=== PATIENT | female | born 1990 | race Caucasian/White ===

== ENCOUNTER 2017-05-02 13:18 | Inpatient (IN) | payer MEDICAID ==
[~2017-05-02] VITALS: Ht 172.7 cm; Wt 95.7 kg
[2017-05-02] MEDS ORDERED: PRENATAL COMPLE1 TAB PO (23:12)
[2017-05-02] MEDS ORDERED: TUMS500 MG PO (23:13)
[2017-05-02 23:14] VITALS: BP 102/56; Ht 172.7 cm; Wt 95.7 kg
[2017-05-02 23:55] LABS: HEMATOCRIT 36.6 % (36.0-48.0); HEMOGLOBIN 12.5 g/dL (12-16); MCHC 34.2 g/dL (31.0-37.0); MEAN PLATELET VOLUME 9.4 fL (7.4-10.4); RBC 4.16 10x6/uL (4.00-5.40); RDW 13.1 % (11.5-14.5); WBC 10.8 10x3/uL (4.8-10.8)
[2017-05-03 00:07] LABS: APPEARANCE CLOUDY (CLEAR); BILIRUBIN NEGATIVE (NEGATIVE); COLOR DK YELLOW (YELLOW); GLUCOSE NEGATIVE (NEGATIVE); KETONE LARGE mg/dL (NEGATIVE); NITRITE NEGATIVE (NEGATIVE); PROTEIN TRACE mg/dL (NEGATIVE); UROBILINOGEN NORMAL (NORMAL)
[2017-05-03 00:08] LABS: BACTERIA MODERATE /hpf (NONE SEEN); EPITHELIAL CELLS 0-5 /hpf (0-5); RED CELLS - URINE 0-5 /hpf (0-5); WHITE CELLS - URINE 0-5 /hpf (0-5)
--- NOTE | 2017-05-03 03:56 | NUR ---
RN TO PT BS TO PERFORM VS, WNL. PT C/O PAIN, RATES 4/10, REQUESTS MEDICATION. DEMEROL 50MG PROVIDED PO AT THIS TIME. WATER MUG REFRESHED. PT DENIES ANY FURTHER NEEDS. BED IN LOW POSITION, SIDE RAILS UP TIMES 2, CALL LIGHT AND PHONE IN REACH. SO REMAINS AT PT BS FOR SUPPORT AND ASSISTANCE. INFANT REMAINS AT PT BS FOR COUPLET CARE. WILL CONT TO MONITOR PT STATUS.
[2017-05-03 15:08] LABS: HIV 1 & 2- RAPID SCREEN NEGATIVE (NEGATIVE)
--- NOTE | 2017-05-03 19:08 | NUR ---
BEDSIDE REPORT REC'D FROM Leda CROWDER RN. PT REC'D SITTING IN HIGH FOWLERS POSITION BONDING WITH INFANT. DENIES NEEDS AT THIS TIME. BED IN LOW POSITION WITH UPPER SIDE RAILS RAISED X2. CL AND PHONE WITHIN REACH. WILL CONT TO MONITOR AND ASSIST PRN.
--- NOTE | 2017-05-03 19:49 | NUR ---
RN TO BEDSIDE FOR ROUNDS. PT CONTINUES TO MEREDITH WITH . DENIES NEEDS AT THIS TIME. REPORTS THAT PAIN IS 6-7/10, STATES THAT MOTRIN HASN'T HELPED PAIN MUCH. NEW ICE PACK PROVIDE TO PERINUM FOR COMFORT. WILL NOTIFY DR. WATTERS OF C/O PAIN THAT IS UNRELIEVED. PT REPORTS THAT SHE IS USING PERIBOTTLE AND DERMAPLAST ALSO WITH MINIMAL RELIEF. DENIES ADDITIONAL NEEDS AT THIS TIME. WILL CONT TO MONITOR AND ASSIST PRN. BED IN LOW POSITION WITH UPPER SIDE RAILS RAISED X2. CL AND PHONE WITHIN REACH. WILL CONT TO MONITOR AND ASSIST PRN.
--- NOTE | 2017-05-03 20:15 | NUR ---
DR. WATTERS NOTIFIED OF PT REPORTS OF UNCONTROLLED PAIN AND INTERVENTIONS DONE. ORDERS REC'D FOR TYLENOL #3 PRN Q4HP PAIN.
[2017-05-03 20:41] VITALS: BP 112/57
--- NOTE | 2017-05-03 20:41 | NUR ---
PAIN 8/10. TYLENOL #3 GIVEN. PT EDUCATED ON MEDICATION USE AND SIDE EFFECTS. VSS. FUNDUS FIRM, U2 MIDLINE, SMALL AMT RUBRA LOCHIA, NO CLOTS. BOWEL SOUNDS PRESENT AND ACTIVE X4. PT STATES THAT SHE IS VOIDING WITHOUT DIFFICULTY AND PASSING FLATUS. BREATH SOUNDS CLEAR AND EQUAL BILATERALLY. BED IN LOW POSITION WITH UPPER SIDE RAILS RAISED X2. CL AND PHONE WITHIN REACH. PLAN OF CARE DISCUSSED WITH PT, DENIES QUESTIONS, VERBALIZES AGREEMENT. WILL CONT TO MONITOR AND ASSIST PRN.
--- NOTE | 2017-05-03 21:27 | NUR ---
PAIN REASSESSMENT COMPLETED. PAIN 10/25, STATES THAT SHE IS FEELING MUCH BETTER NOW. INFANT TAKEN TO NBN PER PT REQUEST. PT REQUEST TO SHOWER AT THIS TIME. INSTRUCTED ON CL USE IN SHOWER, VERBALIZES UNDERSTANDING. WILL CONT TO MONITOR AND ASSIST PRN.
--- NOTE | 2017-05-03 21:57 | NUR ---
SHOWER COMPLETED. PT AMBULATORY TO ROOM 1257 FOR CONTINUES PP CARE. ORIENTED TO ROOM, CL USE, BATHROOM, BEDRAILS, AND ROOM TELEPHONE. PT INSTRUCTED ON USE OF ROOM PHONE TO CONTACT NBN, VERBALIZES UNDERSTANDING. REPORTS THAT PAIN IS 6/10, ABD CRAMPING AND PERINEAL BURNING/STINGING. PT ALSO SHOWN TO NBN FROM NEW ROOM. BED IN LOW POSITION WITH UPPER SIDE RAILS RAISED X2. CL AND PHONE WITHIN REACH. WILL CONT TO MONITOR.
--- NOTE | 2017-05-03 22:05 | NUR ---
MOTRIN GIVEN FOR PAIN. EPIFOAM AND TUX ALSO PROVIDE. PT INSTRUCTED ON USE OF EPIFOAM AND TUX PADS. VERBALIZES UNDERSTANDING, STATES THAT SHE HAS USED ALL PRODUCTS WITH HER PREVIOUS BIRTHS. MILD 2+ BILATERAL LABIAL SWELLING. NEW ICE PACK PLACED TO PERINUM. SANDWICH TRAY PROVIDED PER PT REQUEST. ICE WATER AND SODA GIVEN. DENIES ADDITIONAL NEEDS AT THIS TIME. BED IN LOW POSITION WITH UPPER SIDE RAILS RAISED X2. CL AND PHONE WITHIN REACH. WILL CONT TO MONITOR AND ASSIST PRN.
--- NOTE | 2017-05-03 22:50 | NUR ---
RN TO BEDSIDE. PAIN REASSESSMENT COMPLETED. WITH IN ARMS RESTING WITH EYES CLOSED. PT EDUCATED ON BEING SURE IS IN OPEN CRIB OR NBN WHEN RESTING, VERBALIZES UNDERSTANDING. PAIN 4/10. DENIES NEEDS AT THIS TIME. ICE REMOVED FROM PERINUM PER PT REQUEST. BED IN LOW POSITION WITH UPPER SIDE RAILS RAISED X2. CL AND PHONE WITHIN REACH. WILL CONT TO MONITOR AND ASSIST PRN.
--- NOTE | 2017-05-04 00:44 | NUR ---
RN TO BEDSIDE FOR ROUNDS. PAIN 8/10, ABD CRAMPING AND PERINEAL BURNING/STINGING. TYLENOL #3 GIVEN PER ORDER AND PT REQUEST. ICE WATER GIVEN. DENIES ADDITIONAL NEEDS AT THIS TIME. BED IN LOW POSITION WITH UPPER SIDE RAILS RAISED X2. CL AND PHONE WITHIN REACH. WILL CONT TO MONITOR AND ASSIST PRN.
--- NOTE | 2017-05-04 01:30 | NUR ---
PAIN REASSESSMENT COMPLETED. PT RESTING WITH EYES CLOSED LAYING ON RIGHT SIDE. RESPIRATIONS REGULAR AND UNLABORED. NO S/S OF DISTRESS NOTED. INFANT IN NBN. BED IN LOW POSITION WITH UPPER SIDE RAILS RAISED X2. CL AND PHONE WITHIN REACH. WILL CONT TO MONITOR AND ASSIST PRN.
--- NOTE | 2017-05-04 03:16 | NUR ---
RN TO BEDSIDE FOR ROUNDS. PT SITTING IN HIGH FOWLERS POSITION BREAST FEEDING . ICE WATER GIVEN. DENIES ADDITIONAL NEEDS AT THIS TIME. PAIN 4-5/10, REQUEST NEW ICE PACK, DENIES NEED FOR MEDICATIONS AT THIS TIME. ICE PACK GIVEN. BED IN LOW POSITION WITH UPPER SIDE RAILS RAISED X2. CL AND PHONE WITHIN REACH. WILL CONT TO MONITOR AND ASSIST PRN.
--- NOTE | 2017-05-04 04:24 | NUR ---
PT CALLS VIA CL. REQUEST PAIN MEDICATION. PAIN NOW 8/10 ABD CRAMPING AND PERINEAL "SORENESS, BURNING, AND STINGING." PT REPORTS THAT SHE JUST VOIDED AND USED ALL PERICARE PRODUCTS. ICE LAYING ON BEDSIDE TABLE, PT REPORTS THAT SHE REMOVED ICE PACK TO GO TO THE BATHROOM. MOTRIN AND TYLENOL #3 GIVEN PER ORDERS AND PT REQUEST. COFFEE PROVIDED. SMALL AMT RUBRA LOCHIA NOTED TO PERIPAD, NO CLOTS. BED IN LOW POSITION WITH UPPER SIDE RAILS RAISED X2. CL AND PHONE WITHIN REACH. WILL CONT TO MONITOR AND ASSIST PRN. REMAINS IN ROOM IN OPEN CRIB AT THIS TIME.
--- NOTE | 2017-05-04 05:15 | NUR ---
PAIN REASSESSMENT COMPLETED. PAIN 10/25. CHUX CHANGED. IN OPEN CRIB AT BEDSIDE. PT AMBULATING IN ROOM. STATES THAT SHE IS "SORE" FROM GIVING . DENIES NEEDS. BED IN LOW POSITION WITH UPPER SIDE RAILS RAISED X2. CL AND PHONE WITHIN REACH. WILL CONT TO MONITOR AND ASSIST PRN.
[2017-05-04 07:20] VITALS: BP 102/47
--- NOTE | 2017-05-04 07:31 | NUR ---
PT WAS RECEIVED THIS AM LYING IN BED, HOLDING BABY. SHE STATES THAT HER PAIN IS AN 8. SHE STATES THAT HER BOTTOM HURTS. VSS. GEN- AWAKE AND ALERT. LUNGS- CLEAR. HEART- RRR. ABD- SOFT WITH TENDERNESS. EXT- NO EDEMA NOTED. BED IS LOW, SIDE RAILS UP X 2 AND CALL LIGHT IN REACH. PT HAS BEEN DOING HER SANTO CARE.
--- NOTE | 2017-05-04 07:43 | OP ---
PATIENT NAME: KATHY BROWN MEDICAL RECORD: [id number] :89 LOCATION:[id number] ADMISSION DATE:05/02/17 SURGEON: KANE WATTERS MD DATE OF OPERATION: 05/03/2017 PREDELIVERY DIAGNOSIS: at term. POSTDELIVERY DIAGNOSIS: Mother delivered at term. PROCEDURE: Vaginal delivery. ATTENDING SURGEON: Kane Watters MD ANESTHETIC: Continuous lumbar epidural. FINDINGS: Viable female , MICHAEL presentation, Apgars were 9 and 9, weight 3390 grams. First-degree perineal laceration with 4-0 chromic repair and local anesthetic applied. Placenta is delivered spontaneous and intact. ESTIMATED BLOOD LOSS: 300 cc. DISPOSITION: Mother and recovered in the room. TRANSINT:[id number] Voice Confirmation ID: [id number] DOCUMENT ID: [id number] KANE WATTERS MD at 0743 CC: [id number] DICTATION DATE: 05/03/17 1249 DIE CASTING MACHINE OPERATOR: 05/03/17 1315 ADM IN [facility] [address] [place] [address]
--- NOTE | 2017-05-04 07:46 | NUR ---
DR WATTERS IS HERE TO SEE PT. NEW ORDERS NOTED.
[2017-05-04 08:21] LABS: RAPID PLASMA REAGIN Non Reactive (Non Reactive)
--- NOTE | 2017-05-04 09:22 | NUR ---
SALINE LOCK REMOVED, TIP INTACT.
--- NOTE | 2017-05-04 10:49 | NUR ---
PT REQUESTED PAIN MED. TORADOL GIVEN PO. SHE STATES THAT HER PAIN IS AN 8.
--- NOTE | 2017-05-04 13:00 | NUR ---
PT LYING IN BED HOLDING BABY. SHE OFFERS NO COMPLAINTS AT THIS TIME. LOCIA RUBRA SLOWING DOWN. PT VOIDING WITHOUT DIFFICULTY.
--- NOTE | 2017-05-04 14:52 | NUR ---
PT REQUESTED PAIN MED. GIVEN.
--- NOTE | 2017-05-04 15:00 | NUR ---
RECEIVED PT SITTING UP IN BED. ON TABLET. DENIES NEEDS. STATES RECEIVED PAIN MEDICATION EARLIER.
[2017-05-04 16:20] VITALS: BP 101/55
--- NOTE | 2017-05-04 16:25 | NUR ---
PT C/O PAIN TO PERINEUM OF "7" ON 0-10 PAIN SCALE. TORADOL 10 MG GIVEN PO ORDERED. PT INSTRUCTED ON MED. VERBALIZES UNDERSTANDING. VSS. PT STATES VOIDING WITHOUT DIFFICULTY. DENIES HEAVY BLEEDING OR PASSING CLOTS. STATES SHOWERED.
--- NOTE | 2017-05-04 17:10 | NUR ---
PT SITTING UP IN BED. HOLDS WITH MUCH WARMTH SHOWN. STATES PAIN NOW "5" ON 0-10 PAIN SCALE. PERINEUM EXAMINED WITH SKIN COLOR PINK. PERINEUM WITH STITCHES WELL APPROXIMATED. FUNDUS FIRM AT U/2. RUBRA LOCHIA SMALL AMT. PT DENIES HEAVY BLEEDING OR PASSING CLOTS. PT STATES "I KNOW THIS IS NORMAL AND I WILL BE BETTER TOMORROW".
--- NOTE | 2017-05-04 19:00 | NUR ---
REPORT GIVEN TO ON-COMING SHIFT.
--- NOTE | 2017-05-04 19:23 | NUR ---
RN TO BEDSIDE. OSMAN FLOYD RN IN ROOM ASSESSING . PT NOTED TO HAVE GRIMACE WHEN SHIFTING IN BED. RATES PAIN 02/24, "I'M JUST SORE, I ALWAYS AM THE DAY AFTER DELIVERY" REPORT ABD CRAMPING, GENERALIZED SORENESS, AND PERINEAL BURNING AND STINGING. PT REQUEST NORCO, GIVEN PER ORDER. PT WITH IN ARMS FOLLOWING NB ASSESSMENT BY Angelito MISTRY RN. PT REQUEST THAT HER V/S AND ASSESSMENT BE COMPLETED WHEN SHE FINISHES WITH CARE. INSTRUCTED TO USE CL TO NOTIFY RN WHEN SHE IS READY FOR ASSESSMENT TO BE COMPLETED, VERBALIZES UNDERSTANDING. BED IN LOW POSITION WITH UPPER SIDE RAILS RAISED X2. CL AND PHONE WITHIN REACH. WILL CONT TO MONITOR AND ASSIST PRN.
[2017-05-04 20:15] VITALS: BP 121/73
--- NOTE | 2017-05-04 20:15 | NUR ---
RN BACK TO BEDSIDE FOR PAIN REASSESSMENT AND ROUNDS. PT JUST GETTING BACK TO BED FOLLOWING VOIDING. STATES THAT SHE IS VOIDING WITHOUT DIFFICULTY AND PASSING FLATUS BUT HAS NOT HAD A BM. PAIN 6/10, REPORTS THAT PAIN IS IMPROVING AND SHE IS MORE COMFORTABLE THAN PRIOR TO RECEIVING PAIN MEDICATIONS. VSS. FUNDUS FIRM U3 AND MIDLINE, SMALL AMT RUBRA LOCHIA NOTED, NO CLOTS. BOWEL SOUNDS PRESENT AND ACTIVE X4. NO LABIAL SWELLING NOTED. BREATH SOUNDS CLEAR AND EQUAL BILATERALLY, RESPIRATIONS REGULAR AND UNLABORED. SITZ BATH OFFERED, PT DECLINES STATES THAT SHE USED THE SHOWER HEAD AND DOESN'T LIKE THE BASINS BECAUSE SHE FEELS DIRTY FOLLOWING USE. EDUCATED ON S/S OF INFECTION AND POSSIBLE PP COMPLICATIONS TO REPORT FOLLOWING D/C, VERBALIZED UNDERSTANDING. PT STATEST THAT SHE IS HUNGRY, SANDWICH TRAY, APPLE SAUCE, AND CRANBERRY JUICE PROVIDED. DENIES ADDITIONAL NEEDS AT THIS TIME. FALL PRECAUTIONS REINFORCED WITH PT D/T PAIN MEDICATIONS, VERBALIZES UNDERSTANDING STATING SHE WILL USE THE CL FOR ASSISTANCE PRN. BED IN LOW POSITION WITH UPPER SIDE RAILS RAISED X2. CL AND PHONE WITHIN REACH. WILL CONT TO MONITOR AND ASSIST PRN.
--- NOTE | 2017-05-04 21:11 | NUR ---
RN TO BEDSIDE FOR ROUNDS. PT BREAST FEEDING INFANT AT THIS TIME. PAIN 01/24, ABD CRAMPING, REQUESTS TORADOL, EXPLAINED THAT TORADOL CAN'T BE GIVEN UNTIL 2200, VERBALIZES UNDERSTANDING. EXPLAINED MEDICATION FREQUENCY TO PT, VERABLIZES UNDERSTANDING AND REQUESTS THAT RN BRING MED WHEN SHE CAN HAVE IT. DENIES ADDITIONAL NEEDS AT THIS TIME. BED IN LOW POSITION WITH UPPER SIDE RAILS RAISED X2. CL AND PHONE WITHIN REACH. WILL CONT TO MONITOR AND ASSIST PRN.
--- NOTE | 2017-05-04 22:31 | NUR ---
RN TO BEDSIDE. PT BONDING WITH . PAIN 02/24, ABD CRAMPING AND PERINEAL BURNING/STINGING AND "IT'S JUST SORE." TORADOL GIVEN PER PREVIOUS REQUEST. ICE WATER GIVEN. DENIES ADDITIONAL NEEDS. PT REPORTS THAT SHE IS CONCERNED THAT ISN'T GETTING ENOUGH COLOSTRUM DURING NURSING SESSIONS, REQUESTS TO KNOW NEXT WEIGHT, OSMAN DOWNING RN NOTIFIED AND WILL REPORT TO PT. PT REPORTS THAT INFANT IS HAVING WET AND DIRTY DIAPERS, ENCOURAGEMENT OFFERED, PT VERBALIZES APPRECIATION. BED IN LOW POSITIION WITH UPPER SIDE RAILS RAISED X2. CL AND PHONE WITHIN REACH. WILL CONT TO MONITOR AND ASSIST PRN.
--- NOTE | 2017-05-04 23:22 | NUR ---
RN TO BEDSIDE FOR PAIN REASSESSMENT. PT RESTING WITH EYES CLOSED IN SEMI FOWLERS POSITION ON LEFT SIDE. RESPIRATIONS REGULAR AND UNLABORED, NO S/S OF DISTRESS NOTED. INFANT IN NBN. BED IN LOW POSITION WITH UPPER SIDE RAILS RAISED X2. CL AND PHONE WITHIN REACH. WILL CONT TO MONITOR AND ASSIST PRN.
--- NOTE | 2017-05-05 01:07 | NUR ---
RN TO BEDSIDE FOR ROUNDS. BROUGHT TO PT FOR BREAST FEEDING PER NBN REQUEST. ID BANDS MATCHED. PT REQUESTS PAIN MEDICATION AT NEXT AVAILABLE TIME, REPORTS THAT PAIN IS 8/10, ABD CRAMPING AND GENERALIZED SORENESS. DENIES ADDITIONAL NEEDS AT THIS TIME. BED IN LOW POSITION WITH UPPER SIDE RAILS RAISED X2. CL AND PHONE WITHIN REACH. NOTED TO HAVE GOOD LATCH, SUCK AND SWALLOW. WILL MEDICATE AT 0120 PER PT'S REQUEST AND CONT TO MONITOR AND ASSIST PRN.
--- NOTE | 2017-05-05 01:24 | NUR ---
PAIN 8/10, ABD CRAMPING, PERINEAL BURNING AND STINGING, AND "JUST SORE ALL OVER." NORCO TAB X2 GIVEN PER ORDER AND PT REQUEST. PT BONDING WITH INFANT AT THIS TIME. ICE WATER GIVEN, DENIES ADDITIONAL NEEDS, STATES THAT NURSED WELL. BED IN LOW POSITION WITH UPPER SIDE RAILS RAISED X2. CL AND PHONE WITHIN REACH. WILL CONT TO MONITOR AND ASSIST PRN.
--- NOTE | 2017-05-05 02:03 | NUR ---
RN TO BEDSIDE FOR PAIN REASSESSMENT. PT WITH IN ARMS, STATES THAT SHE IS NODDING OFF AT TIMES. INFANT PLACED IN OPEN CRIB PER PT REQUEST. PAIN 5/10, DENIES NEED FOR ADDITIONAL INTERVENTION. DENIES NEEDS. BED IN LOW POSITION WITH UPPER SIDE RAILS RAISED X2. CL AND PHONE WITHIN REACH. WILL CONTINUE TO MONITOR AND ASSIST.
--- NOTE | 2017-05-05 04:21 | NUR ---
RN TO BEDSIDE FOR ROUNDS. PT RESTING WITH EYES CLOSED ON RIGHT SIDE IN SEMI FOWLERS POSITION. RESPIRATIONS REGULAR AND UNLABORED, NO S/S OF DISTRESS NOTED. INFANT IN OPEN CRIB AT BEDSIDE, RESPIRATIONS REGULAR AND UNLABORED, NO S/S OF DISTRESS NOTED. BED IN LOW POSITION WITH UPPER SIDE RAILS RAISED X2. CL AND PHONE WITHIN REACH. WILL CONT TO MONITOR AND ASSIST PRN.
--- NOTE | 2017-05-05 05:10 | NUR ---
PT CALLS VIA CL. REQUESTS TORADOL FOR ABD CRAMPING. RN TO BEDSIDE. PAIN 01/24. PT BREAST FEEDING AT THIS TIME. COFFEE ALSO PROVIDED PER REQUEST. DENIES ADDITIONAL NEEDS THIS TIME. TORADOL GIVEN PER REQUEST. BED IN LOW POSITION WITH UPPER SIDE RAILS RAISED X2. CL AND PHONE WITHIN REACH. WILL CONT TO MONITOR AND ASSIST PRN.
--- NOTE | 2017-05-05 08:00 | NUR ---
PT IS LYING IN BED, WATCHING TV. BREAKFAST TRAY IS ON BEDSIDE TABLE. PT DENIES NEEDS AT THIS TIME. FAMILY AT BEDSIDE VISITING. WILL RETURN FOR AM ASSESSMENT. SRUP X2, CALL LIGHT AND PHONE WITHIN REACH.
[2017-05-05 10:00] VITALS: BP 110/62
--- NOTE | 2017-05-05 10:00 | NUR ---
TO PT'S ROOM, PT IS SITTING UP IN THE BED, NURSING . PT REQUESTS PAIN MEDICATIONS, SEE EMAR FOR ALL MEDS ADM BY THIS RN. FRESH ICE WATER SERVED. PT DENIES HEAVY BLEEDING OR PASSING CLOTS. PT DENIES OTHER NEEDS AT THIS TIME. SR UP X2, CALL LIGHT AND PHONE WITHIN REACH.
--- NOTE | 2017-05-05 11:00 | NUR ---
PT IS SITTING IN THE BED, STATES SHE IS FEELING MUCH BETTER. DISCHARGE PLANNING DISCUSSED WITH PT. PT DENIES NEEDS AT THIS TIME. SR UP X 2, CALL LIGHT AND PHONE WITHIN REACH.
--- NOTE | 2017-05-05 12:00 | NUR ---
DIETARY SERVES LUNCH TRAY, PT DENIES ALL NEEDS AT THIS TIME. SRUP X 2, CALL LIGHT AND PHONE WITHIN REACH.
[2017-05-05] MEDS ORDERED: IBUPROFEN800 MG PO (13:51)
[2017-05-05] MEDS ORDERED: TYLENOL #4 W/CO1 TAB PO (13:52)
--- NOTE | 2017-05-05 14:00 | NUR ---
DISCHARGE INSTRUCTIONS EXPLAINED TO PT, PRESCRIPTIONS GIVEN TO PT, ALONG WITH INSTRUCTION SHEET AND HOME MED LIST. PT DENIES ANY FURTHER NEEDS. PREPARING SELF AND FOR DISCHARGE HOME. SIG OTHER AND YOUNG SON IN THE ROOM AT THIS TIME.
--- NOTE | 2017-05-05 14:20 | NUR ---
PT TAKEN OUT, AMBULATORY WITH INFANT IN CARSEAT, TO PRIVATE VEHICLE, WITH SIG OTHER DRIVING.
--- NOTE | 2017-07-28 08:09 | DS ---
PATIENT:KATHY BROWN :88 MEDICAL RECORD: [id number] DISCHARGE SUMMARY ADMISSION DATE: 05/02/17 DISCHARGE DATE: 05/05/17 DATE OF ADMISSION: 05/02/2017. DATE OF DISCHARGE: 05/05/2017. ADMISSION DIAGNOSIS: at term. DISCHARGE DIAGNOSES: Mother delivered at term. PROCEDURE: Vaginal delivery. SUMMARY OF HOSPITALIZATION: The patient was admitted to the hospital and delivered without incident. The patient had an unremarkable hospital stay and at the time of discharge, has adequate pain control, tolerating a regular diet, and voiding without difficulty. DISCHARGE MEDICATIONS: Include ibuprofen. She has been instructed to follow up in 4 weeks at the [facility]. TRANSINT:[id number] Voice Confirmation ID: [id number] DOCUMENT ID: [id number] HALIE WATTERS MD at 0809 CC: [id number] DICTATION DATE: 07/26/17 1630 MERCHANDISING LEAD: 07/27/17 0813 DIS IN 05/05/17 [id number] [place] [address]
== END 2017-05-05 14:20 | disposition home or self-care (01) | DRG 775 ==
LOC: D.LD 13:18
PROVIDERS: ADMIT Obstetrics & Gynecology
PROC: 10E0XZZ Delivery of Products of Conception, External Approach (ICD-10-PCS; principal; 2017-05-03)
PROC: 0HQ9XZZ Repair Perineum Skin, External Approach (ICD-10-PCS; 2017-05-03)
DX: O99.824 Streptococcus B carrier state complicating childbirth (principal); Z3A.39 39 weeks gestation of pregnancy; Z37.0 Single live birth

== ENCOUNTER 2018-10-30 05:20 | Day surgery (SDC) | payer MEDICAID ==
[2018-10-27 10:34] LABS: CALC OSMOLALITY 279 mosm/kg (275-300); CALCIUM 8.5 mg/dL (8.5-10.1); CARBON DIOXIDE 26.1 mmol/L (21.0-32.0); CHLORIDE - SERUM 105 mmol/L (98-107); CREATININE - SERUM 0.7 mg/dL (0.6-1.3); GLUCOSE 89 mg/dL (74-106); POTASSIUM - SERUM 3.9 mmol/L (3.5-5.1); SODIUM 141 mmol/L (136-145); UREA NITROGEN 12 mg/dL (7-18); eGFR NON AFRICAN AMERICAN > 90 mL/min (90-120)
[2018-10-27 10:47] LABS: HEMATOCRIT 40.2 % (36.0-48.0); LYMPHOCYTES 26.7 % (15-50); MCH 31.1 pg (26.0-34.0); MCHC 34.8 g/dL (31.0-37.0); MCV 89.3 fL (80.0-100.0); MEAN PLATELET VOLUME 8.3 fL (7.4-10.4); NEUTROPHILS 66.7 % (40-80); PLATELET COUNT 371 10x3/uL (130-400); WBC 9.5 10x3/uL (4.8-10.8)
[~2018-10-30] VITALS: Ht 172.7 cm; Wt 105.9 kg
[2018-10-30] VITALS (11 sets, daily range): BP systolic 108–137; BP diastolic 55–76; Ht 172.7 cm; Wt 105.9 kg
[~2018-10-30 05:20] MED LIST: IBUPROFEN800 MG PO; PRENATAL COMPLE1 TAB PO; TUMS500 MG PO; TYLENOL #4 W/CO1 TAB PO
[2018-10-30] MEDS ORDERED: NEURONTIN 300300 MG PO (06:20)
[2018-10-30 06:25] LABS: HCG URINE NEGATIVE (NEGATIVE)
--- NOTE | 2018-10-30 10:38 | NUR ---
RECEIVED 28 Y/O WF WELL NOURISHED AND IN NO DISTRESS. O2 HAS BEEN WEANED OFF. O2 SAT ON ROOM AIR IS 98%. ALERT/AWAKE. ORIENTED X 4. SKIN WARM DRY AND PINK. BBS= AND CTA. BOWEL SOUNDS PRESENT ONLY IN LEFT LOWER QUADRANT. 3 STAB WOUNDS NOTED WITH MARGINS WELL APPROXIMATED AT UMBILICUS AND AT FAR RIGHT AND LEFT MARGINS LOWER ABD PROXIMAL TO VULVA. GRANT. SCD SLEEVES INTACT; CONNECTED TO SCD PUMP NOW WITH PUMP ON. IV LEFT FOREARM PATENT WITH LR AT KVO AND NO SIGNS OF REDNESS, SWELLING,DRAINAGE OR FEVER AT OR NEAR INSERTION SITE; CONNECTED TO IV PUMP FOR RATE OF 125ML/HR. INSTRUCTED TO TURN, COUGH AND DEEP BREATH EVERY 2 HR. PATIENT COMPLIANT AND DEEP BREATHES/COUGHS NOW WITH PILLOW TO ABD FOR SPLINTING. REPORTS PAIN AT LEVEL 7 ON SCALE OF 0-10. DENIES NAUSEA. 2 ICE CHIPS GIVEN. HAYNES PATENT WITH CLEAR PALE YELLOW URINE, APPROX 200ML IN BAG. NO VAGINAL DISCHARGE. HOB ELEVATED TO 45 DEGREES. ATTENTIVE AT BEDSIDE; BOTH HE AND PATIENT ORIENTED TO ROOM AND POC.
--- NOTE | 2018-10-30 11:35 | NUR ---
REPOSITIONED TO LEFT SIDE AFTER INCENTIVE SPIROMETRY PERFORMED 3 TIMES TO 1999. O2 SAT 97% WHEN AWAKE BUT DROPPED TO 92% WHEN ASLEEP UPON NURSE ENTRY TO ROOM. SKIN WARM DRY AND PINK. HAVE CALLED PHARMACY TO GET DILAUDID CLINICAL TRIAL SPECIALIST TO NO AVAIL. WILL CALL AGAIN. GABAPENTIN AND TYLENOL GIVEN. PAIN REMAINS AT 7 ON SCALE OF 0-10.
--- NOTE | 2018-10-30 11:45 | NUR ---
O2 RESUMED O2 SAT 93% UPON NURSE ENTRY. O2 AT 2L/MIN PER NASAL CANNULA. COLOR PINK. SKIN WARM DRY. ALERT AND ORIENTED X 4.
--- NOTE | 2018-10-30 12:26 | NUR ---
REPORTS ADEQUATE PAIN RELIEF FROM PHOTONICS ENGINEER. EATING SMALL AMT OF REGULAR DIET, SLOWLY. DENIES NAUSEA.
--- NOTE | 2018-10-30 12:49 | NUR ---
REMAINS STABLE, REPORTING PAIN AT 6 ON 0-10 SCALE. ENCOURAGED TO USE CAR LUBRICATOR BUTTON EVERY 10 MIN UNTIL PAIN IS TOLERABLE. PATIENT USES CAR LUBRICATOR NOW. S.O. SLEEPING AT BEDSIDE. NO SIGNS OF RESP DISTRESS OR OTHER DISTRESS NOTED OR REPORTED. SKIN WARMK DRY AND PINK. O2 CONT AT 2L/MIN PER NASAL CANNULA, KEEPING O2 SAT AT 95% EVEN WHEN SLEEPING.
--- NOTE | 2018-10-30 13:16 | NUR ---
PATIENT HAS REPOSITIONED SELF TO BACK. INCENTIVE SPIROMETER USED. REPORTS PAIN FLUCTUATES FROM 4-6 ON 0-10 SCALE. NO SIGNS OF DISTRESS
--- NOTE | 2018-10-30 14:54 | NUR ---
THIS NURSE RECEIVES REPORT FOR Joey PETIT RN. PT AWAKE AND VERBAL RESPONSES APPRO TO QUESTIONS. GRANT AT WILL AND ON COMMAND. IV INFUSING LR AT 125CC/HR INTO FOREARM. 02 SAT 95%. LAP INCISIONS X3 WNL. HAYNES CATH DRAINING CLEAR URINE- 140CC IN CONTAINER. SCD'S ON.
--- NOTE | 2018-10-30 15:02 | NUR ---
USING INCENTIVE JEFF AT THIS TIME. REQUESTING A CUP OF COFFEE.
--- NOTE | 2018-10-30 15:10 | NUR ---
NEW ICE WATER GIVEN. COFFEE SERVED.
--- NOTE | 2018-10-30 15:12 | NUR ---
MOVED PULSE OX TO NEW FINGER- O2 SAT 98%. DECREASED TO 1L/NC. WILL MONITOR.
--- NOTE | 2018-10-30 15:15 | NUR ---
DR WATTERS IN UNIT AND TO SEE PT- O2 PER NC REMOVED.
--- NOTE | 2018-10-30 15:36 | OP ---
PATIENT NAME: KATHY BROWN MEDICAL RECORD: [id number] :88 LOCATION:[facility] .1278 ADMISSION DATE: SURGEON: KANE WATTERS MD DATE OF OPERATION: 10/30/2018 PREOPERATIVE DIAGNOSES: 1. History of SARI 2. 2. Dysmenorrhea. 3. Menorrhagia. POSTOPERATIVE DIAGNOSES: 1. History of SARI 2. 2. Dysmenorrhea. 3. Menorrhagia. 4. Pelvic adhesions. PROCEDURES: 1. Diagnostic laparoscopy. 2. Lysis of adhesions. 3. Laparoscopically assisted vaginal hysterectomy. SURGEON: Kane Watters MD ANESTHESIA: Dr. Cleary WAX CUTTER: Haroldo Arizmendi. ANESTHETIC: General. FINDINGS: Omentum was adhesed to the anterior abdominal wall. There was peritoneal adhesion to the fundus of the uterus. Right ovary and tube were missing. The left ovary has cystic changes. Uterus was unremarkable with the exception of being slightly enlarged and boggy. Vaginal mucosa was unremarkable. SPECIMENS REMOVED: Left tube, uterus with cervix. SPECIMEN DISPOSITION: Pathology. ESTIMATED BLOOD LOSS: 175 cc. FLUIDS: 1400 cc of lactated Ringer's. URINE OUTPUT: 300 cc of clear urine. COMPLICATIONS: None. DRAIN: [place] to gravity. INDICATIONS: The patient is a 28-year-old female with SARI 2. The patient also reports menorrhagia and dysmenorrhea. The patient was consented for total laparoscopic hysterectomy and any indicated procedure with removal of left tube. DESCRIPTION OF PROCEDURE: After informed consent was assured, the patient was taken to the operating room where anesthetic was obtained. The patient was now OPERATIVE REPORT [id number] KATHY BROWN prepped and draped in the usual sterile fashion. A primary trocar was inserted after placement of the uterine manipulator. Pneumoperitoneum was developed and the patient was in Trendelenburg position. Accessory ports were placed in the right and left lower quadrant. Adhesions were identified in the midline from the mid abdomen to the pelvis. Using a Thunderbeat coagulation cutter, the adhesions were taken down superiorly and inferiorly. The peritoneal adhesions to the fundus of the bladder were now taken down. Once this has been performed, uterus was deviated to the left of midline and using the coagulation cutter, the round ligament was compressed, coagulated, and . The anterior leaf of the broad ligament was opened and the bladder flap developed to the midline. The posterior leaf was opened and the vessels of the right side skeletonized, compressed, coagulated, and . Attention was now directed to the left side. The left tube was elevated and dissection was carried out underneath this across the uterine ovarian and round ligaments. The anterior leaf of the broad ligament was opened and the bladder flap now fully developed. The posterior leaf was opened and vessels of the left side skeletonized, compressed, coagulated, and then . The dissection of the cuff of the uterus from the vaginal cuff begins posteriorly in the midline. The incision was made into the vaginal vault. Bleeding occurs between the peritoneum and vaginal mucosa that is poorly controlled and the decision was made to move forward with laparoscopically assisted vaginal hysterectomy. At this point, the legs were positioned and speculum introduced to the vagina. The cervix was grasped with tenaculum and placed on gentle traction. Using Alvarez scissors, posterior cul-de-sac was entered and the peritoneum tacked to the mucosa. The peritoneum and mucosa after developing the uterosacral pedicles was whipped with a Vicryl stitch for hemostasis. A long billed weighted speculum was introduced. Attention now was directed anteriorly and Bovie cautery was used to mobilize the vaginal mucosa off the cervix. The anterior pelvis rather was entered and Jelani retractor placed. The remaining portions of the cardinal ligaments serially clamped, cut and tied until the uterus was removed. Upon removing of the uterus, the pedicles were inspected and found to be adequately hemostatic. The cuff was now closed in a horizontal fashion. The initial stitch incorporates the uterosacral ligament to the vaginal cuff. The stitch was a continuous running 0 Vicryl. Once the cuff has been closed inspection reveals some bleeding from midline. [id number] stitches applied here for hemostasis. Pneumoperitoneum was reestablished and visualization of the pelvis revealed adequate hemostasis. The pelvis was irrigated and irrigant removed. The left ovarian cyst was now opened. Interceed was placed over the vaginal cuff. Sponge, lap, and needle counts correct times 2. The pneumoperitoneum was released and trocars removed. The skin was reapproximated with subcuticular stitch. Dermabond was applied. The patient was awakened and went to the recovery area in stable condition. TRANSINT:[id number] Voice Confirmation ID: [id number] DOCUMENT ID: [id number] KANE WATTERS MD at 1536 CC: [id number] DICTATION DATE: 10/30/1845 [employer]: 10/30/18 1529 [facility] [address] [place] [address]
--- NOTE | 2018-10-30 15:43 | NUR ---
O2 SAT 97.
--- NOTE | 2018-10-30 16:37 | NUR ---
PULSE OX READING 93%. O2 BACK ON PER N/C AT 1 LITER.
--- NOTE | 2018-10-30 18:31 | NUR ---
ate few bites of dinner. watching tv. ice water given. denies needs. moving self about in bed. using incentive inocente.
--- NOTE | 2018-10-30 20:56 | NUR ---
GABAPENTIN 300MG PO PER MD ORDERS AT THIS TIME
--- NOTE | 2018-10-30 20:57 | NUR ---
AMBIEN 10MG PO PER MD ORDERS AT THIS TIME
--- NOTE | 2018-10-30 21:00 | NUR ---
PATIENT RECEIVED LYING IN A RIGHT TILT WITH EYES OPEN, OXYGEN REMAINS IN PLACE VIA NC AT 1L/MIN. TWO LAPAROSCOPIC INCISIONS TO RIGHT AND LEFT SIDE OF ABDOMEN CLOSED WITH GLUE-INTACT. NO REDNESS OR SWELLING OR DRAINAGE NOTED. HAYNES CATHETER DRAINING TO GRAVITY, 1800 ML CLEAR YELLOW URINE EMPTIED AT THIS TIME. INCENTIVE SPROMETER AT BEDSIDE, PT STATES THAT SHE IS USING IT AND ALSO TURNING HERSELF PERIODICALLY. SCD BOOTS REMAIN IN PLACE ON AND ATTACHED TO A WORKING MACHINE. PT DENIES NEEDS, BED REMAINS LOCKED IN LOW POSITION, CALL MIRANDA AND TRAY TABLE IN REACH. WILL CONTINUE TO MONITOR.
--- NOTE | 2018-10-30 22:10 | NUR ---
DR WATTERS CALLED LABOR UNIT AND GAVE ORDERS TO DISCONTIUNE HAYNES CATHETER, PHOTOGRAPHIC PROCESS ATTENDANT AND SWITCH TO PO PAIN MEDS. ORDERS INPUT INTO [employer]. HAYNES CATHETER DISCONTINUED WITH 300ML CLEAR YELLOW URINE IN BAG. PHOTOGRAPHIC PROCESS ATTENDANT DISCONTINUED AND WASTED WITH DAVID MCGRATH. OXYGEN DISCONTINUED. PT INSTRUCTED TO CALL WHEN SHE NEEDED TO VOID. PT VERBALIZES UNDERSTANDING. WILL CONTINUE TO MONITOR.
--- NOTE | 2018-10-30 22:16 | NUR ---
SAFIA PROVIDED PER PT REQUEST.
--- NOTE | 2018-10-31 00:15 | NUR ---
PT AMBULATED SELF TO BATHROOM TO VOID, STATES THAT SHE DIDNT WANT TO BOTHER THE STAFF CAUSE SHE THOUGHT WE MIGHT BE BUSY, RN ENSURES PT THAT IT IS OUR JOB TO TAKE CARE OF HER AND TO PLEASE CALL WITH ANY FURTHER NEEDS.
--- NOTE | 2018-10-31 01:25 | NUR ---
PT RINGS CALL LIGHT TO REQUEST PAIN MEDICATION. THIS RN TO BEDSIDE TO ADMINISTER PERCOCET 5/325MG ONE TAB PER MD ORDERS.
--- NOTE | 2018-10-31 02:31 | NUR ---
PT SLEEPING WITH EASY RESPIRATIONS, NO DISTRESS NOTED. BED REMAINS LOCKED IN LOW POSITION, SIDE RAILS UPX2, CALL MIRANDA AND TRAY TABLE IN REACH. WILL CONTINUE TO MONITOR
--- NOTE | 2018-10-31 05:40 | NUR ---
PERCOCET 5/325MG PO PER PT REQUEST FOR PAIN 01/24. SEE EMAR. PT UP TO BATHROOM WITH ASSIST. VOIDED WITHOUT DIFFICULTY, AND BACK TO BED. PT DENIES FURTHER NEEDS, WILL CONTINUE TO MONITOR
--- NOTE | 2018-10-31 08:00 | NUR ---
dr thompson here to see pt.
[2018-10-31 08:53] VITALS: BP 132/63
--- NOTE | 2018-10-31 08:58 | NUR ---
UP AND ABOUT IN ROOM. STATES SHE IS READY TO GO HOME-STATES SHE WOULD LIKE PAIN MEDICATION BEFORE LEAVING. CO UNCOMFORTABLE FEELING LOWER ABD. BOWEL SOUNDS PRESENT. INFORMED THAT DISCHARGE INST NEED TO BE GIVEN BEFORE DISCHARGE.
--- NOTE | 2018-10-31 09:11 | NUR ---
SALINE LOCK REMOVED- CATH TIP INTACT- PRESSURE HELD AND BANDAIDE APPLIED.
[2018-10-31] MEDS ORDERED: OXYCODONE HCL10 MG PO (09:39)
--- NOTE | 2018-10-31 09:52 | NUR ---
RINGS CALL LIGHT- REQUESTING PAIN MEDICATION AT THIS TIME. RATES PAIN A 7 ON SCALE OF 0-10. STATES PASSING FLATUS.
--- NOTE | 2018-10-31 10:00 | NUR ---
DISCHARGE INST VERBAL AND WRITTEN GIVEN. PRESCRIPTION X 1 GIVEN, ALONG WITH DRUG DATA SHEETS AND PT MED REC. LAP SURGERY POST OP INST FROM [facility] GIVEN TO PT- DENIES QUESTIONS. OTHER DISCHARGE INST GIVEN.PT HEALTH SUMMARY GIVEN.
--- NOTE | 2018-10-31 10:30 | NUR ---
PT STATES SHE IS READY TO GO HOME. DENIES ANY QUESTIONS CONCERNING DISCHARGE INST. TO AUTO VIA W/C. TO DRIVE HOME.
== END 2018-10-31 10:30 | disposition home or self-care (01) ==
LOC: D.OPS 05:20 → D.PAN 07:30 → D.OPS 07:30 → D.PAN 08:30 → D.LD 10:16 → D.OPS 10-31 10:30
PROVIDERS: ATTEND Obstetrics & Gynecology
DX: N87.0 Mild cervical dysplasia (principal); N72 Inflammatory disease of cervix uteri; N92.0 Excessive and frequent menstruation with regular cycle; N73.6 Female pelvic peritoneal adhesions (postinfective); N94.6 Dysmenorrhea, unspecified; Z01.812 Encounter for preprocedural laboratory examination